=== PATIENT | female | born 1985 | race Caucasian/White ===

== ENCOUNTER 2016-11-09 10:23 | Emergency (ER) | payer BC, OTHER ==
[2016-11-09 10:19] LABS: URINE SOURCE CLEAN CATCH
[~2016-11-09 10:23] MED LIST: ADVIL200 M2 PO; ALBUTEROL17 GM INH; ALLERGY RELIEF10 M2 PO; ATARAX PO; AZITHROMYCIN250 MG PO; BCP; BENZONATATE PO; CEFDINIR300 MG PO; CIPRO PO; ELIMITE60 GM TOP; FLEXERIL10 M1 PO; HYDROCODON-ACE1 EAC9 PO; HYDROCODON-ACE1 EACH PO; HYDROXYZINE HCL50 MG PO; LORTAB 5/500 TA1 TA1 PO; NIX59 ML TOP; NO MEDICATIONS; PREDNISONE PO; PREDNISONE50 MG PO; PYRIDIUM PO; RANITIDINE HCL300 M1 PO; STERAPRED5 MG/DOSE1 PO; TESSALON200 MG PO; VIBRAMYCIN100 M1 PO; VICODIN PO; VOLTAREN75 MG PO
[2016-11-09 10:33] LABS: BASOPHIL# 0.1 X10e3 (0-0.3); BASOPHIL% 0.5 % (0-2.5); EOSINOPHIL# 0.5 X10e3 (0-0.7); EOSINOPHIL% 4.1 % (0.0-7.0); HEMATOCRIT 42.7 % (35.0-45.0); LYMPHOCYTE# 2.5 X10e3 (1.0-3.5); LYMPHOCYTE% 20.3 % (17.0-45.0); MEAN CELL VOLUME 87.3 FL (83-96); MEAN CORPUSCULAR HEMOGLOBIN 28.6 PG (28-34); MEAN CORPUSCULAR HGB CONC 32.7 g/dL (30-36); MEAN PLATELET VOLUME 10.1 FL (6.5-11.5); MONOCYTE# 0.8 X10e3 (0-1.0); MONOCYTE% 6.5 % (3.0-12.0); NEUTROPHIL# 8.4 X10e3 (1.5-7.1); NEUTROPHIL% 68.6 % (40-75); PLATELET COUNT 262 X10e3 (140-420); RED BLOOD COUNT 4.88 X10e (3.90-5.30); WHITE BLOOD COUNT 12.3 X10e3 (4.0-10.5)
[2016-11-09 10:36] LABS: DIFF IND NO
[2016-11-09 10:36] LABS: URINE APPEARANCE CLEAR; URINE BILIRUBIN NEG (NEG); URINE BLOOD TRACE (NEG); URINE COLOR YELLOW; URINE GLUCOSE NEG (NEG); URINE KETONE NEG (NEG); URINE LEUKOCYTE ESTERASE NEG (NEG); URINE NITRATE NEG (NEG); URINE PROTEIN NEG (NEG); URINE SPECIFIC GRAVITY 1.013 (1.003-1.035); URINE UROBILINOGEN 0.2 MG/DL (NEG)
[2016-11-09 10:39] LABS: URBCS1 AUWI 0-2 /[HPF] (0-2); URINE BACTERIA AUWI NEG (NEGATIVE); URINE SQUAMOUS EPITHELIAL CELL FEW /[HPF]; UWBCS1 AUWI 0-2 (0-5)
[2016-11-09 10:43] LABS: CULTURE INDICATED? NO
[2016-11-09 10:57] LABS: ALBUMIN SERUM 3.7 g/dL (3.5-5.0); ALKALINE PHOSPHATASE 57 U/L (32-92); ALT (SGPT) 21 U/L (10-40); AST (SGOT) 23 U/L (10-42); BILIRUBIN, DIRECT 0.1 mg/dL (0.0-0.2); BILIRUBIN,INDIRECT 0.7 mg/dL (0.0-0.9); BILIRUBIN,TOTAL 0.8 mg/dL (0.2-2.0); BLOOD UREA NITROGEN 8 mg/dL (9-23); BUN/CREATININE RATIO 13.33; CALCIUM SERUM 8.9 mg/dL (8.4-10.2); CARBON DIOXIDE 25 mmol/L (22-31); CHLORIDE 103 mmol/L (100-111); CREATININE SERUM 0.6 mg/dL (0.6-1.4); GLOM FILT RATE Estimated ABOVE60 mL/min (>60); GLUCOSE FASTING 97 mg/dL (70-110); POTASSIUM 3.8 mmol/L (3.5-5.1); PROTEIN TOTAL SERUM 6.8 g/dL (6.0-8.3); SODIUM 137 mmol/L (135-145)
== END 2016-11-09 11:37 | disposition home or self-care (01) ==
LOC: CED 10:23
PROVIDERS: Emergency Medicine
DX: O99.89 Other specified diseases and conditions complicating pregnancy, childbirth and the puerperium (principal); N23 Unspecified renal colic; Z87.442 Personal history of urinary calculi; Z91.040 Latex allergy status; Z88.8 Allergy status to other drugs, medicaments and biological substances
CPT/HCPCS: 36415; 80048; 80076; 81003; 84703; 85025; 96374; 99284; J2765

== ENCOUNTER 2017-01-16 23:40 | Emergency (ER) | payer OTHER ==
--- NOTE | ~2017-01-16 | CT4 ---
[facility] A Service of [facility] RADIOLOGY TEXT RESULTS PATIENT: MICHELLE VARELA LOCATION: [facility] : [birth year] UNIT #: [id number] AGE: [address]: Ino Aldana MD SEX: F ORDER DR: [id number] [facility] [address] [place], [place] [address] [id number] E MR#: [id number] Acc #: [id number] NAME: MICHELLE VARELA. : 1985 SEX: F STUDY DATE/TIME: 01/17/2017 1:52 UNIT: [facility] ROOM: STUDY DESCRIPTION: CT Abd and Pelv Wo Cont Attending Physician: Ino Aldana M.D. Ordering Physician: Ino Aldana M.D. Primary Care Physician: [facility] IMAGING REPORT This report is preliminary unless electronic signature is present EXAM CT abdomen and pelvis INDICATION Left flank pain for [address] of the abdomen and pelvis without contrast. Coronal and sagittal reconstructions were obtained. This CT exam was performed with one or more of the following radiation dose reduction techniques: automatic exposure control, adjustment of mA and/or kV according to patient size, and iterative reconstruction. COMPARISON CT abdomen and pelvis dated 07/10/2013. FINDINGS ABDOMEN: No urinary calculi. No hydronephrosis. Noncontrast evaluation of the remaining solid abdominal organs and the gallbladder are within normal limits. There is no small bowel obstruction. There is minimal stranding associated with an epiploic appendage of the proximal sigmoid colon. Please correlate for any evidence of epiploic appendagitis. PELVIS: There is minimal stranding adjacent to the right ovary. There is some low-attenuation cystic structures suggesting ovarian cysts. No free fluid. Left ovary is unremarkable. No enlarged pelvic or inguinal lymph nodes. No acute osseous abnormalities. [facility] A Service [facility] RADIOLOGY TEXT RESULTS PATIENT: MICHELLE VARELA LOCATION: [facility] : 87 UNIT #: [id number] AGE: [address]: Ino Aldana MD SEX: F ORDER DR: IMPRESSION 1. Minimal stranding associated with an epiploic appendage of the sigmoid colon. Please correlate any evidence of an epiploic appendagitis. 2. Minimal stranding associated with the right ovary. There are several benign cysts in the right ovary. 3. No urinary calculi. Normal appendix. Dictated by... Scooby Valdez M.D. THIS IS AN ELECTRONICALLY VERIFIED REPORT Scooby Valdez M.D. at 01/17/2017 4:10 AM GERRY/nestor TD: 01/17/2017 03:21 JOB #: [id number] MEDICAL IMAGING REPORT Page 1 of 1 COPY
[2017-01-17 01:10] LABS: URINE SOURCE CLEAN CATCH
[2017-01-17 01:14] LABS: URINE APPEARANCE CLEAR; URINE BILIRUBIN NEG (NEG); URINE BLOOD 1+ (NEG); URINE COLOR YELLOW; URINE GLUCOSE NEG (NEG); URINE KETONE NEG (NEG); URINE LEUKOCYTE ESTERASE NEG (NEG); URINE NITRATE NEG (NEG); URINE PROTEIN NEG (NEG); URINE SPECIFIC GRAVITY 1.024 (1.003-1.035)
[2017-01-17 01:17] LABS: CULTURE INDICATED? YES; U HYALINE CASTS AUWI 0-2 /[LPF]; URINE BACTERIA AUWI 1+ (NEGATIVE); URINE SQUAMOUS EPITHELIAL CELL FEW /[HPF]; UWBCS1 AUWI 0-2 (0-5)
[2017-01-17 01:27] LABS: BASOPHIL# 0.1 X10e3 (0-0.3); BASOPHIL% 0.5 % (0-2.5); EOSINOPHIL# 0.5 X10e3 (0-0.7); EOSINOPHIL% 4.2 % (0.0-7.0); HEMATOCRIT 39.4 % (35.0-45.0); LYMPHOCYTE# 3.7 X10e3 (1.0-3.5); LYMPHOCYTE% 33.1 % (17.0-45.0); MEAN CELL VOLUME 85.8 FL (83-96); MEAN CORPUSCULAR HEMOGLOBIN 28.4 PG (28-34); MEAN CORPUSCULAR HGB CONC 33.1 g/dL (30-36); MONOCYTE# 0.7 X10e3 (0-1.0); MONOCYTE% 5.9 % (3.0-12.0); NEUTROPHIL# 6.2 X10e3 (1.5-7.1); NEUTROPHIL% 56.3 % (40-75); PLATELET COUNT 264 X10e3 (140-420); RED BLOOD COUNT 4.59 X10e (3.90-5.30); RED CELL DISTRIBUTION WIDTH 12.8 % (11.0-15.5); WHITE BLOOD COUNT 11.1 X10e3 (4.0-10.5)
[2017-01-17 01:33] LABS: DIFF IND NO
[2017-01-17 02:03] LABS: ALBUMIN SERUM 3.7 g/dL (3.5-5.0); BILIRUBIN, DIRECT 0.1 mg/dL (0.0-0.2); BILIRUBIN,INDIRECT 0.4 mg/dL (0.0-0.9); BILIRUBIN,TOTAL 0.5 mg/dL (0.2-2.0); BUN/CREATININE RATIO 16.66; CALCIUM SERUM 8.8 mg/dL (8.4-10.2); CREATININE SERUM 0.6 mg/dL (0.6-1.4); GLOM FILT RATE Estimated 122.3 mL/min (>60); POTASSIUM 3.7 mmol/L (3.5-5.1); PROTEIN TOTAL SERUM 7.1 g/dL (6.0-8.3)
== END 2017-01-17 02:24 | disposition home or self-care (01) ==
LOC: CED 23:40
PROVIDERS: Emergency Medicine
DX: K63.89 Other specified diseases of intestine (principal); Z87.442 Personal history of urinary calculi; Z91.040 Latex allergy status; Z88.5 Allergy status to narcotic agent
CPT/HCPCS: 36415; 74176; 80048; 80076; 81003; 83690; 84703; 85025; 87086; 96374; 96375; 99284; J1885; J2270; J2405

== ENCOUNTER 2017-04-11 08:18 | Emergency (ER) | payer OTHER ==
[~2017-04-11] VITALS: Ht 162.6 cm; Wt 113.4 kg
--- NOTE | ~2017-04-11 | CT2 ---
[facility] A Service of [facility] RADIOLOGY TEXT RESULTS PATIENT: MICHELLE VARELA LOCATION: [facility] : 87 UNIT #: [id number] AGE: [address]: Christiana Sagastume APRN SEX: F ORDER DR: [id number] [facility] [address] [place], [place] [address] [id number] E MR#: [id number] Acc #: [id number] NAME: MICHELLE VARELA : 1985 SEX: F STUDY DATE/TIME: 04/11/2017 11:26 UNIT: [facility] ROOM: STUDY DESCRIPTION: CT Abd and Pelv W Cont Attending Physician: Christiana Sagastume A.P.R.N. Ordering Physician: Ed Karl Jimenez M.D. [facility] MED[facility] IMAGING REPORT This report is preliminary unless electronic signature is present EXAM CT abdomen and pelvis with contrast, 04/11/2017. HISTORY Right lower quadrant abdominal pain since 05:00 this morning. History of kidney stones. COMPARISON CT abdomen and pelvis without contrast, 01/17/2017. PROCEDURE 5-mm axial images from the lung bases through the lesser trochanters after intravenous contrast administration. Enteric contrast was not administered. Sagittal and coronal reformatted images were obtained. FINDINGS ABDOMEN FINDINGS: The lung bases are clear. The heart size is within normal limits. Liver is steatotic. Gallbladder, spleen, pancreas, adrenals, and kidneys are within normal limits. Appendix is normal. Bowel appears grossly nonthickened, nondominant, and noninflamed. PELVIS FINDINGS: Right ovarian cyst measures 2.7 cm. No pelvic free fluid. Urinary bladder, uterus, and rectum are normal. IMPRESSION 1. 2.7-cm right ovarian cyst. 2. The appendix is normal. 3. No acute findings in the abdomen or pelvis. 4. Hepatic steatosis. Dictated by... Gloria Redman M.D. [facility] A Service of [facility] RADIOLOGY TEXT RESULTS PATIENT: MICHELLE VARELA LOCATION: [facility] : 87 UNIT #: [id number] AGE: [address]: Christiana Sagastume APRN SEX: F ORDER DR: THIS IS AN ELECTRONICALLY VERIFIED REPORT Gloria Redman M.D. at 04/12/2017 8:56 AM Tono TD: 04/11/2017 14:45 JOB #: [id number] MEDICAL IMAGING REPORT Page 1 of 1 COPY
[2017-04-11 09:00] LABS: BASOPHIL# 0.1 X10e3 (0-0.3); BASOPHIL% 0.6 % (0-2.5); EOSINOPHIL# 0.3 X10e3 (0-0.7); EOSINOPHIL% 3.2 % (0.0-7.0); HEMATOCRIT 41.3 % (35.0-45.0); HEMOGLOBIN 14.1 gm/dL (12.0-16.0); LYMPHOCYTE# 2.6 X10e3 (1.0-3.5); LYMPHOCYTE% 26.6 % (17.0-45.0); MEAN CELL VOLUME 85.3 FL (83-96); MEAN CORPUSCULAR HEMOGLOBIN 29.1 PG (28-34); MEAN CORPUSCULAR HGB CONC 34.1 g/dL (30-36); MONOCYTE# 0.6 X10e3 (0-1.0); MONOCYTE% 6.2 % (3.0-12.0); NEUTROPHIL# 6.3 X10e3 (1.5-7.1); NEUTROPHIL% 63.4 % (40-75); PLATELET COUNT 286 X10e3 (140-420); RED BLOOD COUNT 4.84 X10e (3.90-5.30); WHITE BLOOD COUNT 9.9 X10e3 (4.0-10.5)
[2017-04-11 09:05] LABS: DIFF IND NO
[2017-04-11 09:39] LABS: ALBUMIN SERUM 3.9 g/dL (3.5-5.0); BILIRUBIN, DIRECT 0.1 mg/dL (0.0-0.2); BILIRUBIN,INDIRECT 0.5 mg/dL (0.0-0.9); BILIRUBIN,TOTAL 0.6 mg/dL (0.2-2.0); BUN/CREATININE RATIO 11.42; CREATININE SERUM 0.7 mg/dL (0.6-1.4); GLOM FILT RATE Estimated 116.3 mL/min (>60); POTASSIUM 3.8 mmol/L (3.5-5.1); PROTEIN TOTAL SERUM 7.4 g/dL (6.0-8.3)
[2017-04-11 10:05] LABS: URINE SOURCE CLEAN CATCH
[2017-04-11 10:13] LABS: URINE APPEARANCE CLOUDY; URINE BILIRUBIN NEG (NEG); URINE BLOOD TRACE (NEG); URINE COLOR DK YELLOW; URINE GLUCOSE NEG (NEG); URINE KETONE NEG (NEG); URINE LEUKOCYTE ESTERASE NEG (NEG); URINE NITRATE NEG (NEG); URINE PROTEIN NEG (NEG); URINE UROBILINOGEN 0.2 MG/DL (NEG)
[2017-04-11 10:20] LABS: CULTURE INDICATED? YES; URBCS1 AUWI 0-2 /[HPF] (0-2); URINE BACTERIA AUWI 1+ (NEGATIVE); URINE SQUAMOUS EPITHELIAL CELL MOD /[HPF]; UWBCS1 AUWI 0-2 (0-5)
[2017-04-11 10:29] LABS: URINE CRYSTALS CALCIUM OXALATE /[HPF]
[2017-04-13 11:12] LABS: CHLAMYDIA TRACH Not Detected (Not Detected); N GONOR Not Detected (Not Detected)
== END 2017-04-11 12:44 | disposition home or self-care (01) ==
LOC: CED 08:18
PROVIDERS: Nurse Practitioner
DX: N83.201 Unspecified ovarian cyst, right side (principal); Z91.040 Latex allergy status
CPT/HCPCS: 36415; 74177; 80048; 80076; 81003; 83690; 84703; 85025; 87086; 87491; 87591; 87808; 87905; 96361; 96374; 96375; 99284; J2270; J2405; Q9967